=== PATIENT | female | born 1990 | race Caucasian/White ===

== ENCOUNTER 2020-01-05 09:55 | Outpatient (CLI) | payer OTHER ==
[2020-01-06 12:00] LABS: SARS-CoV-2 MS2 Positive; SARS-CoV-2 N Gene Negative; SARS-CoV-2 S Gene Negative; SARS-CoV-2 by NAA Not Detected (NotDetected); SARS-CoV-2 orf1ab Negative
== END 2020-01-05 09:56 | disposition home or self-care (01) ==
LOC: LABBT 09:55
PROVIDERS: ATTEND Obstetrics & Gynecology
DX: Z20.828 Contact with and (suspected) exposure to other viral communicable diseases (principal)
CPT/HCPCS: 87635; U0003

== ENCOUNTER 2020-01-09 05:30 | Inpatient (IN) | payer OTHER ==
[2020-01-09] MEDS ORDERED: hydrALAZINE 20 MG/ML VIAL SLOW IVP PRN (20:33)
[2020-01-09] MEDS ORDERED: Methylergonovine 0.2 MG/ML VIAL IM PRN (20:33)
[2020-01-09] MEDS ORDERED: Carboprost 250 MCG/ML AMP IM PRN (20:33)
[2020-01-09] MEDS ORDERED: Lidocaine 1% (PF) 30 ML VIAL SC PRN (20:33)
[2020-01-09] MEDS ORDERED: Promethazine HCl 25 MG/ML VIAL IM PRN (20:33)
[2020-01-09] MEDS ORDERED: NS / Oxytocin 40 units/1000ml 1,000 ML IV PRN (20:33)
[2020-01-09] MEDS ORDERED: Butorphanol Tartrate 1 MG/ML VIAL SLOW IVP PRN (20:33)
[2020-01-09] MEDS ORDERED: Ondansetron PF 4 MG/2 ML Vial IVP PRN (20:33)
[2020-01-09] MEDS ORDERED: Acetaminophen 500 MG TAB PO PRN (20:33)
[2020-01-09] MEDS ORDERED: HYDROcodone/Acetaminophen 5/325 mg Tablet PO PRN ×2 (20:33)
[2020-01-09] MEDS ORDERED: Docusate 100 MG CAP PO PRN (20:33)
[2020-01-09] MEDS ORDERED: Misoprostol 200 MCG TAB PR PRN (20:33)
[2020-01-09] MEDS ORDERED: Ibuprofen 800 MG TAB PO PRN (20:33)
[2020-01-09] MEDS ORDERED: Diphenoxylate HCl/Atropine Tablet PO PRN ×2 (20:33)
--- NOTE | 2020-01-09 20:37 | PDOC.LDHP ---
Labor and Delivery H&P HPI: 29 y/o at 39 and / for elective term induction of labor. Current gestational age (weeks): 39 Due date: 01/15/20 Grav: 5 Para: 2 Current complications: none Abnormal US findings: No Social history: none - Physical Exam Vital signs reviewed and normal: yes General: NAD, resting Heart: RRR Lungs: CTAB Abdomen: gravid Extremeties: no edema FHT: category 1 - Assessment L&D Assessment: elective induction at term - Plan Plan: admit to L&D, cervical ripening
[2020-01-09] MEDS ORDERED: NS w/ Oxytocin 10 units 500 ML IV SCH ×2 (20:45)
[2020-01-09 20:51] VITALS: BMI 29.0
[2020-01-09] MEDS: Misoprostol 100 MCG TAB VAG SCH (21:01)
[2020-01-09] MEDS: Lactated Ringer's 1,000 ML IV SCH (21:01)
[2020-01-09 21:31] LABS: Hemoglobin 11.5 g/dL (12.0-16.0); Mean Corpuscular HGB CONC 34.6 g/dL (32.0-36.0); Mean Corpuscular Hemoglobin 30.9 pg (27.0-31.0); Mean Corpuscular Volume 89.1 fL (78.0-98.0); Mean Platelet Volume 8.1 fL (7.4-10.4); Platelet Count 326 thou/uL (130-400); RBC Distribution Width 11.8 % (11.5-14.5); Red Blood Cell (RBC) Count 3.71 mill/uL (4.20-5.40); White Blood Cell (WBC) Count 13.1 thou/uL (4.8-10.8)
[2020-01-09 22:09] LABS: Syphilis Antibody Nonreactive (Nonreactive); Syphilis Antibody Index 0.03 S/CO (<1.00 Non-Reactive)
[2020-01-10 00:51] LABS: HBSAg Index 0.17 S/CO (0-0.99); Hep B Surf Ag Non-Reactive S/CO (NonReactive)
[2020-01-10] MEDS: Lactated Ringer's 1,000 ML IV SCH ×2 (01:26→18:00)
[2020-01-10] MEDS: Misoprostol 100 MCG TAB VAG SCH ×4 (01:55→18:00)
[2020-01-10] MEDS ORDERED: Fentanyl 4 mcg/Bup 0.1% Cadd 100 ML ONE (09:32)
[2020-01-10] MEDS ORDERED: EPHEDRINE 25 MG/5 ML SYRINGE SLOW IVP PRN (11:01)
[2020-01-10] MEDS ORDERED: Ondansetron PF 4 MG/2 ML Vial IVP PRN ×2 (11:01→17:17)
[2020-01-10] MEDS ORDERED: Promethazine HCl 25 MG/ML VIAL IM PRN ×2 (11:01→17:17)
[2020-01-10] MEDS ORDERED: diphenhydrAMINE 50 MG/ML VIAL IVP PRN (11:01)
[2020-01-10] MEDS ORDERED: Naloxone HCl 0.4 mg/ml Vial IVP PRN ×2 (11:01)
[2020-01-10] MEDS ORDERED: Lactated Ringer's 500 ML IV PRN (11:01)
[2020-01-10] MEDS ORDERED: Acetaminophen 325 MG TAB PO PRN (11:01)
[2020-01-10] MEDS ORDERED: Fentanyl 4 mcg/Bupivacaine 0.1% Cassette 100 ML EPIDURAL SCH (11:15)
[2020-01-10] MEDS ORDERED: Communication Order-Pharmacy FS PRN (11:15)
[2020-01-10] MEDS ORDERED: Misoprostol 200 MCG TAB ONE (15:27)
[2020-01-10] MEDS ORDERED: Benzocaine-Menthol 82.5 ML CAN TOP PRN (17:17)
[2020-01-10] MEDS ORDERED: hydrALAZINE 20 MG/ML VIAL SLOW IVP PRN (17:17)
[2020-01-10] MEDS ORDERED: Zolpidem Tartrate 5 MG TAB PO PRN (17:17)
[2020-01-10] MEDS ORDERED: Bisacodyl 10 MG SUPP PR PRN (17:17)
[2020-01-10] MEDS ORDERED: HYDROcodone/Acetaminophen 5/325 mg Tablet PO PRN (17:17)
[2020-01-10] MEDS ORDERED: Lanolin Ointment 7 GM TUBE TOP PRN (17:17)
[2020-01-10] MEDS ORDERED: Milk Of Magnesia 30 ML UDCUP PO PRN (17:17)
[2020-01-10] MEDS ORDERED: Preparation H Ointment 28 GM TUBE PR PRN (17:17)
[2020-01-10] MEDS ORDERED: diphenhydrAMINE 25 MG CAP PO PRN (17:17)
[2020-01-10] MEDS ORDERED: NS / Oxytocin 40 units/1000ml 1,000 ML IV SCH (17:30)
[2020-01-10] MEDS: HYDROcodone/Acetaminophen 5/325 mg Tablet PO PRN (20:18)
[2020-01-10] MEDS: Ibuprofen 800 MG TAB PO SCH (21:30)
[2020-01-10] MEDS: Docusate Calcium (SURFAK) 240 MG CAP PO SCH (21:30)
[2020-01-11] MEDS: HYDROcodone/Acetaminophen 5/325 mg Tablet PO PRN ×3 (01:50→17:10)
[2020-01-11] MEDS: Ibuprofen 800 MG TAB PO SCH ×2 (05:44→13:36)
[2020-01-11 06:16] LABS: Mean Corpuscular HGB CONC 34.2 g/dL (32.0-36.0); Mean Corpuscular Hemoglobin 30.8 pg (27.0-31.0); Mean Corpuscular Volume 90.2 fL (78.0-98.0); Mean Platelet Volume 7.6 fL (7.4-10.4); Platelet Count 256 thou/uL (130-400); Red Blood Cell (RBC) Count 3.56 mill/uL (4.20-5.40); White Blood Cell (WBC) Count 13.5 thou/uL (4.8-10.8)
[2020-01-11 08:44] VITALS: BP 105/67; TEMP 98.1
[2020-01-11] MEDS ORDERED: Prenatal Vitamin 1 TAB PO SCH (09:00)
[2020-01-11] MEDS ORDERED: Varicella virus, LIVE 0.5 ML VIAL SC ONE (09:00)
[2020-01-11] MEDS ORDERED: Measles/Mumps/Rubella 10 MCG/0.5 ML VIAL SC ONE (09:00)
[2020-01-11] MEDS ORDERED: Adacel (T-DAP) 0.5 ML SYRINGE IM ONE (09:00)
[2020-01-11] MEDS: Ferrous Sulfate 325 MG TAB PO SCH ×2 (09:30→16:00)
[2020-01-11] MEDS: Docusate Calcium (SURFAK) 240 MG CAP PO SCH (10:13)
[2020-01-11] MEDS ORDERED: Bupivacaine/Epinephrine 0.25% 30 ML VIAL ONE (12:07)
--- NOTE | 2020-01-11 19:14 | PDOC.PP ---
Post Progress Note Post Day #: 1 PO intake tolerated: yes Flatus: yes Ambulation: yes Vital Signs (12 hours) Temp Pulse Resp BP Pulse Ox 01/11/20 08:00 98.1 F 71 18 105/67 97 Weight Weight 197 lb - Physical Examination General: NAD Cardiovascular: no m/r/g, RRR Respiratory: clear to auscultation bilaterally, non-labored breathing Abdominal: + bowel sounds, lochia, no distention, appropriately TTP Extremities: negative homans (B) Neurological: no gross focal deficits Psychiatric: A&Ox3, normal affect Result Diagrams: 01/11/20 05:56 Additional Labs: Post Labs Hep Bs Antigen Non-Reactive S/CO (NonReactive) 01/09/20 21:00 Blood Type B POSITIVE 01/09/20 21:55
--- NOTE | 2020-01-12 00:52 | DN ---
DATE OF PROCEDURE: 01/10/2020 TIME OF SERVICE: 1519 hours central daylight savings time. PREOPERATIVE DIAGNOSIS: Intrauterine at 39 weeks and 2 days with a term induction of labor. POSTOPERATIVE DIAGNOSIS: Intrauterine at 39 weeks and 2 days with a term induction of labor. PROCEDURE: Spontaneous vaginal delivery over intact perineum. QUANTITATIVE BLOOD LOSS: 200 mL. COMPLICATIONS: None. FINDINGS: Viable female , weighing 3470 grams or 7 pounds 10 ounces, Apgars 8 and 9. PROCEDURE IN DETAIL: The patient presented to [facility] where she was admitted to the labor and delivery service. The patient underwent a normal and uneventful labor with normal cervical dilatation until she was found to be completely dilated. She was then allowed to push and was able to bring the baby down and delivered the baby in a vertex presentation without difficulties. Once the head delivered in occiput anterior position, the shoulders followed spontaneously along with the rest of the baby's body. Once out the baby's mouth and nose were bulb suctioned. The cord was clamped and cut and baby was handed to waiting attendants. Cord blood was collected. Gentle fundal massage was performed and the placenta delivered intact without problems. Hemostasis was assured. Quantitative blood loss was calculated. Inspection of the cervix, vaginal vault, and perineum did not reveal any lacerations needing suturing. Once again, hemostasis was within normal limits and the patient was allowed to recover in the labor and delivery room. Baby went to nursery. Job ID: [id number]
== END 2020-01-11 19:44 | disposition home or self-care (01) | DRG 807 ==
LOC: L&D 19:37 → 3SE 01-10 18:09
PROVIDERS: ADMIT Obstetrics & Gynecology; ATTEND Obstetrics & Gynecology
PROC: 10E0XZZ Delivery of Products of Conception, External Approach (ICD-10-PCS; principal; 2020-01-10)
PROC: 3E0P7VZ Introduction of Hormone into Female Reproductive, Via Natural or Artificial Opening (ICD-10-PCS; 2020-01-10)
DX: O80 Encounter for full-term uncomplicated delivery (principal); Z37.0 Single live birth; Z3A.39 39 weeks gestation of pregnancy; Z20.828 Contact with and (suspected) exposure to other viral communicable diseases
CPT/HCPCS: 36415; 51702; 85027; 86780; 86850; 86900; 86901; 87340; J2590